=== PATIENT | female | born 1970 | race Caucasian/White ===

== ENCOUNTER 2016-05-24 13:50 | Inpatient (IN) | payer OTHER ==
[~2016-05-24] VITALS: Ht 165.1 cm; Wt 89.1 kg
--- NOTE | ~2016-05-24 | O ---
[place], [place] OPERATIVE NOTE [facility]: [id number] UNIT #: [id number] ROOM: 519 DOCTOR: NOEMI RAMIREZ,GRACIE BIRTHDATE: [birth year] DOS: 05/29/2016 INDICATIONS: The patient has presented with chief complaint of nausea, vomiting, undergoing investigation. The patient with lung CA history, status post chemotherapy ____. PROCEDURE: Today's procedure part of investigation is panendoscopy. PREMEDICATION: Versed and Diprivan. SCOPE: Olympus forward viewing gastroscope Q10 video. REPORT: After putting the patient in the left lateral position and after application of lubricant to the scope, the scope was introduced. Thereafter, under direct visualization, I advanced through the length of esophagus without difficulty. Gastric pouch was entered. Gastritis seen. Duodenal bulb, second and third part within normal limit. The patient extubated, tolerated the procedure well. IMPRESSION: Gastritis, status post biopsy. No obstruction was identified. PLAN AND DISCUSSION: This patient can be continued with same therapy. Reglan 5 mg daily would suffice. On the other hand, PPI, omeprazole 20 mg 1 every day would do. Soft diet. If she tolerates, she can be discharged and followed up as outpatient. GRACIE FRANKLIN MD CM:OPRECORD:OPERATIVE NOTE [id number] GRACIE FRANKLIN MD 05/29/16 1404 interface
--- NOTE | ~2016-05-24 | CON ---
[place], [place] REPORT OF CONSULTATION NAME: [facility]EN [id number] UNIT #: [id number] ROOM: 519 DOCTOR: NOEMI RAMIREZRICHARDEVARTSSHASHANK BIRTHDATE: [birth year] DOS: 05/29/2016 GASTROENDOSCOPIC REPORT HISTORY OF PRESENT ILLNESS: A 46-year-old patient who is presenting with a chief complaint of nausea, vomiting for 4 days and subsequently she is status post chemotherapy on May 05 and for bilateral lung CA status post committed smoker who has stopped smoking last year. At the time of admission, white blood cell was 11, H and H of 14 and 42. Her comprehensive metabolic panel: BUN and creatinine 24 and 1.37. Electrolytes were balanced. Potassium of 3.4 was addressed. Liver function test normal. Amylase and lipase normal. C-reactive protein was normal. CT scan of the abdomen, no acute abnormality in the abdomen and pelvic was obtained. Lactic acid was unremarkable. Her CBC differential was reassessed periodically and microcytic indices identified. Blood cultures were unremarkable. Final CBC remains about 10 and 32 with MCV of 100, MCH of 33. Basic metabolic panel otherwise potassium today is 3.2 with sodium of 146, chloride 110. PAST MEDICAL HISTORY: Status post history of lung CA, deep venous thrombosis, COPD, history of nicotine dependence stopped last year. PAST SURGICAL HISTORY: Status post inferior vena cava filter, hysterectomy, tubal ligation, cholecystectomy, hip, appendectomy, podiatric surgery. SOCIAL HISTORY: Has stopped smoking, nonalcohol consumer. Drinking 6 cups of coffee per day. FAMILY HISTORY: Sister with squamous cell CA lung. ALLERGIES: IODINE, SHELLFISH AND IVP DYE. MEDICATIONS: List has been reviewed, Eliquis on hold. REVIEW OF SYSTEMS: In general, HEENT: Denies double vision, blurred vision. RESPIRATORY: Some shortness of breath. CARDIOVASCULAR: Denies chest pain. DIGESTIVE SYSTEM: Nausea and vomiting. PHYSICAL EXAMINATION: VITAL SIGNS: Stable, nontoxic. HEENT: Head normocephalic, nontraumatic. Mouth and buccal mucosa benign. NECK: Supple, no thyromegaly, no cervical lymphadenopathy. CHEST: Symmetric anatomy, equal expansion. No wheeze, no rhonchi. HEART: Normal sinus rhythm, no gallop, no murmur. ABDOMEN: Soft. No hepato-organomegaly. Bowel sounds present. No pulsatile mass. EXTREMITIES: No cyanosis, no pedal edema. NEUROLOGIC: Alert, oriented to time, place, person. [place], [place] REPORT OF CONSULTATION NAME: DANA HOLDEN UNIT #: [id number] ROOM: [facility] DOCTOR: NOEMI RAMIREZ,GRACIE BIRTHDATE: [birth year] IMPRESSION: Lung cancer status post wedge resection, status post chemotherapy, nausea. OTHER ADJUNCTIVE DIAGNOSES: History of deep venous thrombosis, inferior vena cava filter. Other adjunctive diagnoses as outlined in paragraph past medical history including hypokalemia. PLAN AND DISCUSSION: Continuation with metoclopramide, continuation with assessment of the patient for endoscopic assessment. The patient past surgical history has been addressed. Status post cholecystectomy in 2004 about and LFTs normal. We are going to proceed with EGD. GRACIE FRANKLIN MD CM:CONSTR:REPORT OF CONSULTATION 1207 05/30/16 0645 interface
[~2016-05-24 13:50] MED LIST: AMITRIPTYLINE50 MG PO; ANAPROX DS550 MG PO; AUGMENTIN 875 M1 TAB PO; B12,B-12,B 12500 MC1 PO; COLACE100 MG PO; CYMBALTA60 MG PO; ELIQUIS2.5 M1 PO; FLEXERIL10 MG PO; HYDROCODONE BIT1 T11 PO; KEFLEX500 MG PO; LEVAQUIN750 M1 PO; NAPROSYN500 MG PO; NATURE'S BLEND F1 MG PO; NEURONTIN300 MG PO; OXTELLAR PO; OXTELLAR XR300 M1 PO; OXYCODONE AND A1 CA1 PO; PHENERGAN25 M3 PO; PREDNISONE10 MG PO; PREDNISONE20 MG PO; TRAMADOL HCL50 MG PO; TYLENOL500 MG PO; VICODIN ES 7501 TAB PO; VITAMIN B12 1541 TAB PO; VITAMIN D50000 I3 PO
[2016-05-24 13:55] VITALS: BP 124/85
[2016-05-24] MEDS ORDERED: DOLOPHINE5 MG PO (14:00)
[2016-05-24] MEDS ORDERED: ALBUTEROL SULF0.5 M1 INH (14:01)
[2016-05-24 14:36] LABS: BASO # 0.1 10*3/uL (0.0-0.1); BASO % 0.6 % (0.0-1.0); EOS % 0.2 % (1.0-4.0); HEMATOCRIT 43.3 % (37.0-47.0); HEMOGLOBIN 14.7 g/dl (12.0-16.0); IG # 0.1 10*3/uL (0.0-0.1); MEAN CELL VOLUME 98.2 fl (81.0-99.0); MEAN CORPUSCULAR HGB 33.3 pg (27.0-31.0); MEAN CORPUSCULAR HGB CONC 33.9 g/dl (33.0-37.0); MEAN PLATELET VOLUME 9.4 fl (9.6-12.3); MONO % 8.8 % (3.0-9.0); NEUT # 8.5 10*3/uL (2.3-7.9); NEUT % 72.4 % (47.0-73.0); PLATELET COUNT AUTOMATED 360 10*3/uL (130-400); RED BLOOD COUNT 4.41 10*6/uL (4.10-5.10); RED CELL DISTRI WIDTH 13.7 % (0-14.5); WHITE BLOOD COUNT 11.7 10*3/uL (4.8-10.8)
[2016-05-24 14:53] LABS: ALBUMIN 3.9 gm/dl (3.1-4.5); ALKALINE PHOSPHATASE 115 U/L (45-117); BILIRUBIN, TOTAL 0.4 mg/dl (0.2-1.0); BUN 24 mg/dl (7-24); CARBON DIOXIDE 24 mmol/L (21-32); CHLORIDE 101 mmol/L (98-107); EST GLOM FILT AFRICAN AMERICAN 51 ml/min; GLUCOSE 107 mg/dL (65-99); POTASSIUM 3.4 mmol/L (3.5-5.1); SGOT/AST 20 IU/L (3-35); SGPT/ALT 27 U/L (12-78); SODIUM 139 mmol/L (136-145); TOTAL PROTEIN 8.4 gm/dL (6.4-8.2)
[2016-05-24 14:54] LABS: C-REACTIVE PROTEIN < 0.29 MG/DL (0-0.3)
[2016-05-24 20:45] VITALS: BP 104/71
[2016-05-24 21:33] VITALS: BP 104/71
[2016-05-25] VITALS: BP 100/51
[2016-05-25 05:59] LABS: BILIRUBIN NEGATIVE (NEGATIVE); BLOOD TRACE-INTACT (NEGATIVE); CLARITY CLEAR (CLEAR); COLOR YELLOW (YELLOW); GLUCOSE NEGATIVE (NEGATIVE); KETONE NEGATIVE (NEGATIVE); LEUKO ESTERASE NEGATIVE (NEGATIVE); NITRITE NEGATIVE (NEGATIVE); PH 5.5 (5.0-9.0); PROTEIN NEGATIVE (NEGATIVE); SPECIFIC GRAVITY 1.015 (1.005-1.030); UROBILINOGEN 0.2 E.U./dl (0.2-1.0)
[2016-05-25 06:06] LABS: BACTERIA TRACE; URINE REFLEX COMMENT NO (NO)
[2016-05-25 07:07] LABS: BASO % 0.5 % (0.0-1.0); EOS # 0.1 10*3/uL (0.0-0.4); EOS % 0.7 % (1.0-4.0); IG # 0.1 10*3/uL (0.0-0.1); LYMPH % 23.8 % (27.0-41.0); MEAN CORPUSCULAR HGB 33.2 pg (27.0-31.0); MEAN CORPUSCULAR HGB CONC 32.7 g/dl (33.0-37.0); MEAN PLATELET VOLUME 9.3 fl (9.6-12.3); MONO # 0.9 10*3/uL (0.1-1.0); MONO % 11.3 % (3.0-9.0); NEUT # 5.2 10*3/uL (2.3-7.9); NEUT % 62.8 % (47.0-73.0); PLATELET COUNT AUTOMATED 275 10*3/uL (130-400); RED BLOOD COUNT 3.49 10*6/uL (4.10-5.10); RED CELL DISTRI WIDTH 13.9 % (0-14.5); WHITE BLOOD COUNT 8.2 10*3/uL (4.8-10.8)
[2016-05-25 07:08] LABS: HEMATOCRIT 35.5 % (37.0-47.0); HEMOGLOBIN 11.6 g/dl (12.0-16.0); MEAN CELL VOLUME 101.7 fl (81.0-99.0)
[2016-05-25 07:36] LABS: BUN 16 mg/dl (7-24); CARBON DIOXIDE 23 mmol/L (21-32); CHLORIDE 114 mmol/L (98-107); CHOLESTEROL 149 mg/dL (<200); EST GLOM FILT AFRICAN AMERICAN > 60 ml/min; FREE T4 1.81 ng/dl (0.76-1.46); GLUCOSE 77 mg/dL (65-99); HDL CHOLESTEROL 36 mg/dl (40-60); LDL CHOLESTEROL 95 mg/dL (9-159); SODIUM 146 mmol/L (136-145); TRIGLYCERIDES 90 mg/dl (<150); VLDL CHOLESTEROL 18 mg/dL (6-40)
[2016-05-25 08:02] LABS: PROTHROMBIN TIME 10.6 SECONDS (9.0-12.4)
[2016-05-25 08:13] LABS: FOLIC ACID > 24.00 ng/mL (>5.38)
[2016-05-25 16:00] VITALS: BP 90/49
[2016-05-25 20:00] VITALS: BP 94/66
[2016-05-26] VITALS: BP 108/52
[2016-05-26 06:47] LABS: BASO % 0.4 % (0.0-1.0); EOS # 0.1 10*3/uL (0.0-0.4); EOS % 1.8 % (1.0-4.0); HEMATOCRIT 33.1 % (37.0-47.0); HEMOGLOBIN 10.9 g/dl (12.0-16.0); IG # 0.1 10*3/uL (0.0-0.1); LYMPH # 1.7 10*3/uL (1.3-4.4); MEAN CELL VOLUME 101.5 fl (81.0-99.0); MEAN CORPUSCULAR HGB 33.4 pg (27.0-31.0); MEAN CORPUSCULAR HGB CONC 32.9 g/dl (33.0-37.0); MEAN PLATELET VOLUME 9.3 fl (9.6-12.3); MONO # 0.7 10*3/uL (0.1-1.0); NEUT # 4.7 10*3/uL (2.3-7.9); NEUT % 63.8 % (47.0-73.0); PLATELET COUNT AUTOMATED 246 10*3/uL (130-400); RED BLOOD COUNT 3.26 10*6/uL (4.10-5.10); RED CELL DISTRI WIDTH 13.8 % (0-14.5); WHITE BLOOD COUNT 7.3 10*3/uL (4.8-10.8)
[2016-05-26 07:17] LABS: POTASSIUM 4.1 mmol/L (3.5-5.1)
[2016-05-26 08:00] VITALS: BP 106/59; BP 92/70
[2016-05-26 12:00] VITALS: BP 132/76
[2016-05-26 16:00] VITALS: BP 106/67
[2016-05-26 20:00] VITALS: BP 100/61
[2016-05-27] VITALS: BP 103/56
[2016-05-27 06:30] LABS: BASO % 0.4 % (0.0-1.0); EOS # 0.2 10*3/uL (0.0-0.4); EOS % 2.2 % (1.0-4.0); HEMATOCRIT 33.2 % (37.0-47.0); LYMPH # 1.8 10*3/uL (1.3-4.4); LYMPH % 26.3 % (27.0-41.0); MEAN CELL VOLUME 100.9 fl (81.0-99.0); MEAN CORPUSCULAR HGB 33.4 pg (27.0-31.0); MEAN CORPUSCULAR HGB CONC 33.1 g/dl (33.0-37.0); MEAN PLATELET VOLUME 9.6 fl (9.6-12.3); MONO # 0.7 10*3/uL (0.1-1.0); MONO % 9.5 % (3.0-9.0); NEUT # 4.2 10*3/uL (2.3-7.9); NEUT % 61.2 % (47.0-73.0); PLATELET COUNT AUTOMATED 251 10*3/uL (130-400); RED BLOOD COUNT 3.29 10*6/uL (4.10-5.10); RED CELL DISTRI WIDTH 13.7 % (0-14.5); WHITE BLOOD COUNT 6.9 10*3/uL (4.8-10.8)
[2016-05-27 06:53] LABS: POTASSIUM 3.5 mmol/L (3.5-5.1)
[2016-05-27 08:00] VITALS: BP 110/56
[2016-05-27 12:00] VITALS: BP 112/60
[2016-05-27 16:00] VITALS: BP 123/70
[2016-05-27 20:00] VITALS: BP 99/70
[2016-05-28] VITALS: BP 106/55
[2016-05-28 06:28] LABS: BASO % 0.5 % (0.0-1.0); EOS # 0.2 10*3/uL (0.0-0.4); EOS % 2.6 % (1.0-4.0); HEMATOCRIT 32.2 % (37.0-47.0); HEMOGLOBIN 10.9 g/dl (12.0-16.0); LYMPH # 1.2 10*3/uL (1.3-4.4); LYMPH % 20.3 % (27.0-41.0); MEAN CELL VOLUME 99.4 fl (81.0-99.0); MEAN CORPUSCULAR HGB 33.6 pg (27.0-31.0); MEAN CORPUSCULAR HGB CONC 33.9 g/dl (33.0-37.0); MEAN PLATELET VOLUME 9.3 fl (9.6-12.3); MONO # 0.6 10*3/uL (0.1-1.0); MONO % 10.2 % (3.0-9.0); NEUT % 66.1 % (47.0-73.0); PLATELET COUNT AUTOMATED 241 10*3/uL (130-400); RED BLOOD COUNT 3.24 10*6/uL (4.10-5.10); RED CELL DISTRI WIDTH 13.7 % (0-14.5); WHITE BLOOD COUNT 6.1 10*3/uL (4.8-10.8)
[2016-05-28 07:03] LABS: POTASSIUM 3.3 mmol/L (3.5-5.1)
[2016-05-28 08:00] VITALS: BP 112/62
[2016-05-28 12:00] VITALS: BP 116/66
[2016-05-28 16:00] VITALS: BP 102/77
[2016-05-28 20:00] VITALS: BP 107/65
[2016-05-29] VITALS (9 sets, daily range): BP systolic 98–135; BP diastolic 58–78
[2016-05-29 06:36] LABS: BASO % 0.5 % (0.0-1.0); EOS # 0.2 10*3/uL (0.0-0.4); EOS % 3.5 % (1.0-4.0); HEMATOCRIT 33.5 % (37.0-47.0); HEMOGLOBIN 11.1 g/dl (12.0-16.0); LYMPH # 1.7 10*3/uL (1.3-4.4); LYMPH % 26.1 % (27.0-41.0); MEAN CELL VOLUME 100.6 fl (81.0-99.0); MEAN CORPUSCULAR HGB 33.3 pg (27.0-31.0); MEAN CORPUSCULAR HGB CONC 33.1 g/dl (33.0-37.0); MEAN PLATELET VOLUME 9.6 fl (9.6-12.3); MONO # 0.7 10*3/uL (0.1-1.0); MONO % 11.6 % (3.0-9.0); NEUT # 3.7 10*3/uL (2.3-7.9); NEUT % 57.8 % (47.0-73.0); PLATELET COUNT AUTOMATED 237 10*3/uL (130-400); RED BLOOD COUNT 3.33 10*6/uL (4.10-5.10); RED CELL DISTRI WIDTH 13.8 % (0-14.5); WHITE BLOOD COUNT 6.4 10*3/uL (4.8-10.8)
[2016-05-29 07:09] LABS: POTASSIUM 3.2 mmol/L (3.5-5.1)
[2016-05-30] VITALS: BP 114/63
[2016-05-30 06:13] LABS: POTASSIUM 3.4 mmol/L (3.5-5.1)
[2016-05-30 06:16] LABS: BASO % 0.4 % (0.0-1.0); EOS # 0.2 10*3/uL (0.0-0.4); EOS % 3.6 % (1.0-4.0); HEMATOCRIT 33.8 % (37.0-47.0); HEMOGLOBIN 11.3 g/dl (12.0-16.0); LYMPH # 1.1 10*3/uL (1.3-4.4); LYMPH % 22.4 % (27.0-41.0); MEAN CELL VOLUME 101.5 fl (81.0-99.0); MEAN CORPUSCULAR HGB 33.9 pg (27.0-31.0); MEAN CORPUSCULAR HGB CONC 33.4 g/dl (33.0-37.0); MEAN PLATELET VOLUME 9.7 fl (9.6-12.3); MONO # 0.5 10*3/uL (0.1-1.0); NEUT # 3.2 10*3/uL (2.3-7.9); NEUT % 63.2 % (47.0-73.0); PLATELET COUNT AUTOMATED 214 10*3/uL (130-400); RED BLOOD COUNT 3.33 10*6/uL (4.10-5.10); RED CELL DISTRI WIDTH 14.1 % (0-14.5)
[2016-05-30 08:00] VITALS: BP 114/64
[2016-05-30 12:00] VITALS: BP 126/61
[2016-05-30 16:00] VITALS: BP 99/57
[2016-05-30 20:00] VITALS: BP 108/95
[2016-05-31] VITALS: BP 119/64
[2016-05-31 07:00] LABS: POTASSIUM 3.4 mmol/L (3.5-5.1)
[2016-05-31 08:00] VITALS: BP 105/60
[2016-05-31 09:17] VITALS: BP 82/60
[2016-05-31 10:30] VITALS: BP 80/64
[2016-05-31] MEDS ORDERED: PROCHLORPERAZINE5 M2 PO (10:32)
== END 2016-05-31 14:01 | disposition home or self-care (01) | DRG 871 ==
LOC: ED 13:50 → EDHOLD 18:38 → 5E 18:38
PROVIDERS: Hospitalist; Internal Medicine; Physician Assistant
PROC: 0DB68ZX Excision of Stomach, Via Natural or Artificial Opening Endoscopic, Diagnostic (ICD-10-PCS; principal; 2016-05-29)
DX: A41.9 Sepsis, unspecified organism (principal); N17.0 Acute kidney failure with tubular necrosis; I82.513 Chronic embolism and thrombosis of femoral vein, bilateral; R65.20 Severe sepsis without septic shock; E55.9 Vitamin D deficiency, unspecified; E86.0 Dehydration; A08.4 Viral intestinal infection, unspecified; E87.6 Hypokalemia; Z98.51 Tubal ligation status; Z90.710 Acquired absence of both cervix and uterus; Z90.49 Acquired absence of other specified parts of digestive tract; Z87.891 Personal history of nicotine dependence; Z80.1 Family history of malignant neoplasm of trachea, bronchus and lung; Z83.3 Family history of diabetes mellitus; Z82.49 Family history of ischemic heart disease and other diseases of the circulatory system; Z91.041 Radiographic dye allergy status; Z91.013 Allergy to seafood; Z79.51 Long term (current) use of inhaled steroids; Z79.899 Other long term (current) drug therapy; Z85.118 Personal history of other malignant neoplasm of bronchus and lung; Z92.21 Personal history of antineoplastic chemotherapy

== ENCOUNTER 2017-06-12 12:26 | Inpatient (IN) | payer OTHER ==
[~2017-06-12] VITALS: Ht 165.1 cm; Wt 89.9 kg
[~2017-06-12 12:26] MED LIST changes: -BUSPAR5 MG PO; -DEXAMETHASONE4 MG PO; -DRONABINOL5 MG PO; -ENOXAPARIN100 MG/1 M SC; -ENOXAPARIN150 MG/1 M SQ; -MORPHINE SULFAT30 M9 PO; -OLANZAPINE10 MG PO; -OMEPRAZOLE40 MG PO; -ONDANSETRON ODT8 MG PO; -OXYCODONE HCL10 M1 PO; -POTASSIUM CHLO10 ME5 PO
[2017-06-12 12:50] LABS: HEMATOCRIT 35.9 % (37.0-47.0); HEMOGLOBIN 11.7 g/dl (12.0-16.0); MEAN CORPUSCULAR HGB 31.3 pg (27.0-31.0); MEAN CORPUSCULAR HGB CONC 32.6 g/dl (33.0-37.0); MEAN PLATELET VOLUME 9.8 fl (9.6-12.3); PLATELET COUNT AUTOMATED 269 10*3/uL (130-400); RED BLOOD COUNT 3.74 10*6/uL (4.10-5.10); RED CELL DISTRI WIDTH 18.7 % (0-14.5); WHITE BLOOD COUNT 15.3 10*3/uL (4.8-10.8)
[2017-06-12 12:59] LABS: ACT PARTIAL THROMBO TIME 26.4 SECONDS (20.8-31.5); INTERNATIONAL NORM RATIO 0.9 (2.0-3.5)
[2017-06-12 13:05] VITALS: BP 109/74
[2017-06-12 13:08] LABS: ALBUMIN 3.4 gm/dl (3.1-4.5); ALKALINE PHOSPHATASE 91 U/L (45-117); BUN 12 mg/dl (7-24); CHLORIDE 105 mmol/L (98-107); CREATININE 0.97 mg/dL (0.55-1.02); POTASSIUM 3.7 mmol/L (3.5-5.1); SGOT/AST 18 IU/L (3-35); SGPT/ALT 21 U/L (12-78); SODIUM 139 mmol/L (136-145); TOTAL PROTEIN 7.1 gm/dL (6.4-8.2)
[2017-06-12 13:17] LABS: PLATELET SUFFICIENCY NORMAL (NORMAL); POLYCHROMASIA SLIGHT; TOTAL CELLS COUNTED 100 #CELLS
[2017-06-12] MEDS ORDERED: POTASSIUM CHLO10 ME5 PO (13:18)
[2017-06-12] MEDS ORDERED: DRONABINOL5 MG PO (13:19)
[2017-06-12] MEDS ORDERED: MORPHINE SULFAT30 M9 PO (13:19)
[2017-06-12] MEDS ORDERED: OMEPRAZOLE40 MG PO (13:19)
[2017-06-12] MEDS ORDERED: ONDANSETRON ODT8 MG PO (13:20)
[2017-06-12] MEDS ORDERED: OXYCODONE HCL10 M1 PO (13:20)
[2017-06-12] MEDS ORDERED: DEXAMETHASONE4 MG PO (13:21)
[2017-06-12] MEDS ORDERED: BUSPAR5 MG PO (13:21)
[2017-06-12] MEDS ORDERED: ENOXAPARIN150 MG/1 M SQ (13:21)
[2017-06-12] MEDS ORDERED: OLANZAPINE10 MG PO (13:22)
[2017-06-12 13:40] VITALS: BP 109/73
[2017-06-12 13:45] VITALS: BP 109/73
[2017-06-12 16:00] VITALS: BP 94/61
[2017-06-12 20:00] VITALS: BP 109/66
[2017-06-13] VITALS: BP 90/50
[2017-06-13 07:19] LABS: HEMATOCRIT 35.3 % (37.0-47.0); HEMOGLOBIN 10.8 g/dl (12.0-16.0); MEAN CORPUSCULAR HGB 30.7 pg (27.0-31.0); MEAN CORPUSCULAR HGB CONC 30.6 g/dl (33.0-37.0); MEAN PLATELET VOLUME 10.2 fl (9.6-12.3); PLATELET COUNT AUTOMATED 261 10*3/uL (130-400); RED BLOOD COUNT 3.52 10*6/uL (4.10-5.10); WHITE BLOOD COUNT 9.9 10*3/uL (4.8-10.8)
[2017-06-13 07:21] LABS: MEAN CELL VOLUME 100.3 fl (81.0-99.0)
[2017-06-13 07:27] LABS: ALBUMIN 2.8 gm/dl (3.1-4.5); ALKALINE PHOSPHATASE 73 U/L (45-117); BUN 14 mg/dl (7-24); CHLORIDE 109 mmol/L (98-107); CHOLESTEROL 219 mg/dL (<200); CREATININE 0.79 mg/dL (0.55-1.02); HDL CHOLESTEROL 39 mg/dl (40-60); LDL CHOLESTEROL 127 mg/dL (9-159); PHOSPHOROUS 2.9 mg/dL (2.5-4.9); POTASSIUM 3.8 mmol/L (3.5-5.1); SGOT/AST 12 IU/L (3-35); SGPT/ALT 13 U/L (12-78); SODIUM 145 mmol/L (136-145); TOTAL PROTEIN 6.1 gm/dL (6.4-8.2); TRIGLYCERIDES 265 mg/dl (<150); VLDL CHOLESTEROL 53 mg/dL (6-40)
[2017-06-13 07:32] LABS: THYROID STIM HORMONE (HS) 0.092 uIU/ml (0.358-4.75)
[2017-06-13 07:48] LABS: VITAMIN D, 25-HYDROXY 12.3 ng/mL (30-100)
[2017-06-13 08:00] VITALS: BP 98/56
[2017-06-13 08:05] LABS: ROULEAUX SLIGHT; TOTAL CELLS COUNTED 100 #CELLS
[2017-06-13 08:06] LABS: PLATELET SUFFICIENCY NORMAL (NORMAL)
[2017-06-13 12:00] VITALS: BP 102/56
[2017-06-13 16:00] VITALS: BP 80/48
[2017-06-13 20:00] VITALS: BP 90/60
[2017-06-14] VITALS: BP 103/58
[2017-06-14 07:19] LABS: HEMATOCRIT 34.7 % (37.0-47.0); HEMOGLOBIN 10.5 g/dl (12.0-16.0); MEAN CELL VOLUME 100.9 fl (81.0-99.0); MEAN CORPUSCULAR HGB 30.5 pg (27.0-31.0); MEAN CORPUSCULAR HGB CONC 30.3 g/dl (33.0-37.0); MEAN PLATELET VOLUME 10.5 fl (9.6-12.3); PLATELET COUNT AUTOMATED 241 10*3/uL (130-400); RED BLOOD COUNT 3.44 10*6/uL (4.10-5.10); RED CELL DISTRI WIDTH 18.9 % (0-14.5); WHITE BLOOD COUNT 6.7 10*3/uL (4.8-10.8)
[2017-06-14 08:00] VITALS: BP 103/58
[2017-06-14 08:05] LABS: PLATELET SUFFICIENCY NORMAL (NORMAL); TOTAL CELLS COUNTED 100 #CELLS
[2017-06-14] MEDS ORDERED: ENOXAPARIN100 MG/1 M SC (10:05)
[2017-06-14 12:00] VITALS: BP 118/64
== END 2017-06-14 12:40 | disposition home or self-care (01) | DRG 300 ==
LOC: ED 12:26 → EDHOLD 13:03 → 4E 13:03
PROVIDERS: Emergency Medicine; Internal Medicine
DX: I82.422 Acute embolism and thrombosis of left iliac vein (principal); D68.59 Other primary thrombophilia; E87.8 Other disorders of electrolyte and fluid balance, not elsewhere classified; E44.0 Moderate protein-calorie malnutrition; C34.92 Malignant neoplasm of unspecified part of left bronchus or lung; I82.412 Acute embolism and thrombosis of left femoral vein; G62.2 Polyneuropathy due to other toxic agents; J44.9 Chronic obstructive pulmonary disease, unspecified; I82.442 Acute embolism and thrombosis of left tibial vein; D63.8 Anemia in other chronic diseases classified elsewhere; D72.810 Lymphocytopenia; D72.829 Elevated white blood cell count, unspecified; R73.9 Hyperglycemia, unspecified; E66.9 Obesity, unspecified; Z96.642 Presence of left artificial hip joint; I82.513 Chronic embolism and thrombosis of femoral vein, bilateral; E55.9 Vitamin D deficiency, unspecified; Z79.899 Other long term (current) drug therapy; Z98.51 Tubal ligation status; Z90.49 Acquired absence of other specified parts of digestive tract; Z90.710 Acquired absence of both cervix and uterus; Z90.89 Acquired absence of other organs; Z89.429 Acquired absence of other toe(s), unspecified side; Z87.891 Personal history of nicotine dependence; Z83.3 Family history of diabetes mellitus; Z82.49 Family history of ischemic heart disease and other diseases of the circulatory system; Z80.1 Family history of malignant neoplasm of trachea, bronchus and lung; Z68.32 Body mass index [BMI] 32.0-32.9, adult; Z92.21 Personal history of antineoplastic chemotherapy; Z91.041 Radiographic dye allergy status; Z91.013 Allergy to seafood; Z87.01 Personal history of pneumonia (recurrent)

== ENCOUNTER → 2017-06-12 | Outpatient (CLI) | payer OTHER ==
[~2017-06-12] MED LIST changes: +ALBUTEROL SULF0.5 M1 INH; +BUSPAR5 MG PO; +DEXAMETHASONE4 MG PO; +DOLOPHINE5 MG PO; +DRONABINOL5 MG PO; +ENOXAPARIN100 MG/1 M SC; +ENOXAPARIN150 MG/1 M SQ; +MORPHINE SULFAT30 M9 PO; +OLANZAPINE10 MG PO; +OMEPRAZOLE40 MG PO; +ONDANSETRON ODT8 MG PO; +OXYCODONE HCL10 M1 PO; +POTASSIUM CHLO10 ME5 PO; +PROCHLORPERAZINE5 M2 PO
== END | disposition home or self-care (01) ==
LOC: US 11:26
DX: M79.662 Pain in left lower leg (principal)

== ENCOUNTER → 2017-09-12 | Day surgery (SDC) | payer MEDICARE, MEDICAID ==
[~2017-09-12] VITALS: Ht 165.1 cm; Wt 83.0 kg
[~2017-09-12] MED LIST changes: +BUSPAR5 MG PO; +DEXAMETHASONE4 MG PO; +DRONABINOL5 MG PO; +ENOXAPARIN100 MG/1 M SC; +ENOXAPARIN150 MG/1 M SQ; +MORPHINE SULFAT30 M9 PO; +OLANZAPINE10 MG PO; +OMEPRAZOLE40 MG PO; +ONDANSETRON ODT8 MG PO; +OXYCODONE HCL10 M1 PO; +POTASSIUM CHLO10 ME5 PO
--- NOTE | ~2017-09-12 | PROC NOTE ---
[place], [place] PROCEDURE NOTE [id number] UNIT #: [id number] ROOM: DOCTOR: CODY DAVIS MD,CHACHA BIRTHDATE: [birth year] DOS: 09/12/2017 PREOPERATIVE DIAGNOSIS: The patient with chronic cough, the patient has an infiltration noted, progressed in the right upper lobe with history of current known metastatic non-small cell lung cancer. COMPLICATIONS: None. LOCAL ANESTHESIA: Conscious sedation. PROCEDURE DESCRIPTION: Informed consent obtained for the patient. The patient was brought to the OR and placed in supine position. Conscious sedation administered by the Anesthesia Department. After achieving appropriate sedation, airway introduced into the mouth. Bronchoscope advanced to the airway into the laryngeal area. Epiglottis and vocal cords were seen. The bronchoscope advanced to vocal cord into tracheal lumen. Tracheal lumen was noted with a small amount of secretion, which was suctioned out, appeared to be mucus. [place] was noted sharp. Right upper, right middle, right lower, left upper, lingular bronchial opening were noted. There were no significant secretion noted except scattered mucous in the airways, which was cleared out. The bronchial washing taken mainly in the right upper lobe basilar subsegment. Bronchial washings sent for appropriate cultures. Cytology was also sent. Procedure well tolerated by the patient without difficulty. Postoperative findings were discussed with the patient's family members. CHACHA ROSS MD CM:PROCNOTE:PROCEDURE NOTE 1001 0004 CHACHA DAVIS MD
[2017-09-12 08:05] VITALS: BP 95/61
[2017-09-12 08:55] VITALS: BP 77/49
[2017-09-12 09:10] VITALS: BP 78/49
[2017-09-12 09:17] VITALS: BP 94/54
[2017-09-12 09:25] VITALS: BP 98/55
[2017-09-15 07:41] LABS: ACID FAST SPEC PROCESSING Concentration (.)
[2017-09-30 08:11] LABS: ORGANISM ID, MOLD Final report (.); RESULT 1 Final Identification (.)
[2017-10-20 14:05] LABS: ACID FAST CULTURE Negative (.)
== END | disposition home or self-care (01) ==
LOC: SDC 09-11 13:15
PROVIDERS: Internal Medicine Critical Care Medicine
DX: C78.01 Secondary malignant neoplasm of right lung (principal); J40 Bronchitis, not specified as acute or chronic; Z86.718 Personal history of other venous thrombosis and embolism; Z98.51 Tubal ligation status; Z90.49 Acquired absence of other specified parts of digestive tract; Z90.710 Acquired absence of both cervix and uterus; F17.210 Nicotine dependence, cigarettes, uncomplicated; Z88.8 Allergy status to other drugs, medicaments and biological substances; Z91.013 Allergy to seafood

== ENCOUNTER → 2018-07-14 | Outpatient (CLI) | payer MEDICARE ==
[~2018-07-14] MED LIST changes: +ARIXTRA10 MG/0.8 SC; +ARNUITY ELLIPT50 MCG INH; +ASPIRIN CHEWABL81 MG PO; +ATIVAN1 MG PO; +CELEXA40 MG PO; +DECADRON4 MG PO; +DILAUDID4 MG PO; +DULCOLAX10 M1 R; +LASIX20 MG PO; +LIDOCAINE PAIN1 EACH T; +MARINOL5 MG PO; +MS CONTIN PO; +MUCINEX ER600 MG PO; +OXYCODONE HCL E30 MG PO; +PAMELOR25 MG PO; +POTASSIUM CHLO10 MEQ PO; +SENNA LAX8.6 M1 PO; +TYLENOL325 M2 PO; +ZOFRAN8 M1 PO
== END | disposition home or self-care (01) ==
LOC: RAD 10:55
DX: J90 Pleural effusion, not elsewhere classified (principal); C34.90 Malignant neoplasm of unspecified part of unspecified bronchus or lung; Z87.891 Personal history of nicotine dependence

== ENCOUNTER 2019-03-14 22:37 | Emergency (ER) | payer MEDICARE, OTHER ==
[~2019-03-14] VITALS: Ht 165.1 cm; Wt 111.1 kg
[2019-03-14 22:43] VITALS: BP 123/69
== END 2019-03-15 01:09 | disposition other institution (70) ==
LOC: ED 22:37
DX: M48.56XA Collapsed vertebra, not elsewhere classified, lumbar region, initial encounter for fracture (principal); C79.51 Secondary malignant neoplasm of bone; Z91.041 Radiographic dye allergy status; Z91.013 Allergy to seafood; Z79.899 Other long term (current) drug therapy; Z90.710 Acquired absence of both cervix and uterus; Z98.890 Other specified postprocedural states; Z87.891 Personal history of nicotine dependence; Z85.118 Personal history of other malignant neoplasm of bronchus and lung

== ENCOUNTER 2019-03-15 21:21 | Emergency (ER) | payer MEDICARE, OTHER ==
[~2019-03-15] VITALS: Ht 165.1 cm; Wt 111.1 kg
[2019-03-15 23:20] LABS: HEMATOCRIT 28.9 % (37.0-47.0); HEMOGLOBIN 8.6 g/dl (12.0-16.0); MEAN CELL VOLUME 102.5 fl (81.0-99.0); MEAN CORPUSCULAR HGB 30.5 pg (27.0-31.0); MEAN CORPUSCULAR HGB CONC 29.8 g/dl (33.0-37.0); MEAN PLATELET VOLUME 9.7 fl (9.6-12.3); NUCLEATED RED BLOOD CELL 0.2 10*3/uL (0.0-0.0); PLATELET COUNT AUTOMATED 183 10*3/uL (130-400); RED BLOOD COUNT 2.82 10*6/uL (4.10-5.10); RED CELL DISTRI WIDTH 19.9 % (0-14.5); WHITE BLOOD COUNT 16.4 10*3/uL (4.8-10.8)
[2019-03-15 23:35] LABS: ALKALINE PHOSPHATASE 437 U/L (45-117); BUN 16 mg/dl (7-24); CHLORIDE 91 mmol/L (98-107); POTASSIUM 3.1 mmol/L (3.5-5.1); SGOT/AST 55 IU/L (3-35); SGPT/ALT 64 U/L (12-78); SODIUM 136 mmol/L (136-145); TOTAL PROTEIN 6.4 gm/dL (6.4-8.2)
[2019-03-15 23:43] LABS: PLATELET SUFFICIENCY NORMAL (NORMAL); TOTAL CELLS COUNTED 100 #CELLS
[2019-03-15 23:44] LABS: POLYCHROMASIA SLIGHT
[2019-03-16 03:11] VITALS: BP 98/62
== END 2019-03-16 03:14 | disposition short-term general hospital (02) ==
LOC: ED 21:21
PROVIDERS: Emergency Medicine
DX: T81.49XA Infection following a procedure, other surgical site, initial encounter (principal); L08.89 Other specified local infections of the skin and subcutaneous tissue; E66.9 Obesity, unspecified; J44.9 Chronic obstructive pulmonary disease, unspecified; F17.200 Nicotine dependence, unspecified, uncomplicated; Z91.013 Allergy to seafood; Z91.041 Radiographic dye allergy status; Z79.899 Other long term (current) drug therapy; Z68.34 Body mass index [BMI] 34.0-34.9, adult; Z86.718 Personal history of other venous thrombosis and embolism; Y92.89 Other specified places as the place of occurrence of the external cause